=== PATIENT | female | born 1950 | race Caucasian/White ===

== ENCOUNTER 2018-09-05 00:31 | Outpatient (REF) | payer MEDICARE, BC, SELFPAY | END 2018-09-05 00:51 | LOC: NCHCN 00:31 | PROVIDERS: PCP Family Medicine; Visit Provider Family Medicine | DX: N39.0 Urinary tract infection, site not specified (principal) | CPT/HCPCS: 87077; 87086; 87186 ==

== ENCOUNTER 2019-07-16 22:18 | Outpatient (REF) | payer MEDICARE, BC, SELFPAY ==
[2019-07-16 20:49] LABS: HCT 43.8 % (36.0-46.0); HGB 14.2 g/dL (12.0-15.5); Mean Corp. HGB Concentration 32.4 g/dL (32.0-36.0); Mean Corpuscular Hemoglobin 31.1 pg (27.0-33.0); Mean Corpuscular Volume 95.8 fL (80-95); Mean Platelet Volume 11.3 fL (8.0-11.0); Platelet Count 166 x1000/uL (130-400); RBC 4.57 m/cumm (4.00-5.20); RBC Distribution Width 12.6 % (11.7-14.6)
[2019-07-16 21:09] LABS: ALT 32 U/L (14-59); AST 34 U/L (15-37); Alkaline Phosphatase 83 U/L (46-116); Anion Gap 7.7 mmol/L (3-11); BUN 19 mg/dL (7-18); Bilirubin, Total 0.5 mg/dL (0.2-1.0); CO2 28.3 mmol/L (21.0-32.0); CREATININE 0.83 mg/dL (0.55-1.02); Calculated LDL 93 mg/dL (<100); Chloride 103 mmol/L (98-107); Cholesterol 188 mg/dL (<200); Glucose 107 mg/dL (74-106); HDL Cholesterol 68 mg/dL (40-60); Potassium 4.5 mmol/L (3.5-5.1); Sodium 139 mmol/L (136-145); Total Protein 7.4 g/dL (6.4-8.2); Triglyceride 138 mg/dL (<150)
== END 2019-07-16 22:38 ==
LOC: NCHCN 22:18
PROVIDERS: PCP Family Medicine; Visit Provider Family Medicine
DX: I50.9 Heart failure, unspecified (principal)
CPT/HCPCS: 80053; 80061; 85027

== ENCOUNTER 2022-03-05 17:47 | Outpatient (REF) | payer MEDICARE, BC, SELFPAY ==
[2022-03-05 21:00] LABS: Anion Gap 7.5 mmol/L (3-11); BUN 18 mg/dL (7-18); CO2 28.5 mmol/L (21.0-32.0); CREATININE 0.9 mg/dL (0.55-1.02); Calcium 9.3 mg/dL (8.5-10.1); Calculated LDL 126 mg/dL (<100); Chloride 103 mmol/L (98-107); Cholesterol 238 mg/dL (<200); Estimated GFR 67.08 (mL/min/1.73m2); Glucose 104 mg/dL (74-106); HDL Cholesterol 72 mg/dL (40-60); Potassium 4.3 mmol/L (3.5-5.1); Sodium 139 mmol/L (136-145); Triglyceride 203 mg/dL (<150)
== END 2022-03-05 17:48 | disposition home or self-care (01) ==
LOC: NCHCN 17:47
PROVIDERS: PCP Family Medicine; Visit Provider Family Medicine
DX: E66.9 Obesity, unspecified (principal); Z13.220 Encounter for screening for lipoid disorders
CPT/HCPCS: 80048; 80061

== ENCOUNTER 2022-09-02 12:36 | Outpatient (REF) | payer MEDICARE, BC, SELFPAY ==
[2022-09-02 15:49] LABS: Calculated LDL 48 mg/dL (<100); Cholesterol 130 mg/dL (<200); HDL Cholesterol 67 mg/dL (40-60); Triglyceride 78 mg/dL (<150)
== END 2022-09-02 12:37 | disposition home or self-care (01) ==
LOC: NCHCN 12:36
PROVIDERS: PCP Family Medicine; Visit Provider Family Medicine
DX: E66.3 Overweight (principal); Z13.220 Encounter for screening for lipoid disorders
CPT/HCPCS: 80061

== ENCOUNTER 2024-04-05 13:26 | Outpatient (REF) | payer MEDICARE, BC, SELFPAY ==
[2024-04-05 15:21] LABS: Anion Gap 5.6 mmol/L (3-11); BUN 16 mg/dL (7-18); CO2 31.4 mmol/L (21.0-32.0); Calcium 9.5 mg/dL (8.5-10.1); Calculated LDL 53 mg/dL (<100); Chloride 105 mmol/L (98-107); Cholesterol 148 mg/dL (<200); Estimated GFR 58.39 (mL/min/1.73m2); Glucose 108 mg/dL (74-106); HDL Cholesterol 73 mg/dL (40-60); Potassium 4.9 mmol/L (3.5-5.1); Sodium 142 mmol/L (136-145); Triglyceride 113 mg/dL (<150)
== END 2024-04-05 13:27 | disposition home or self-care (01) ==
LOC: NCHCN 13:26
PROVIDERS: PCP Family Medicine; Visit Provider Family Medicine
DX: Z00.00 Encounter for general adult medical examination without abnormal findings (principal)
CPT/HCPCS: 80048; 80061